=== PATIENT | male | born 1965 | race Caucasian/White ===

== ENCOUNTER 2022-07-03 08:25 | Outpatient (CLI) | payer OTHER, SELFPAY ==
[2022-07-03 12:24] LABS: Albumin* 4.6 g/dL (3.3-5.0)
[2022-07-03 12:25] LABS: Chloride* 103 mmol/L (96-114); Potassium* 4.8 mmol/L (3.6-5.1); Sodium* 137 mmol/L (135-149)
[2022-07-03 12:27] LABS: Alanine Aminotransferase* 49 U/L (4-50); Alkaline Phosphatase* 91 U/L (40-150); Aspartate Amino Transferase* 33 U/L (12-35); Bilirubin Total* 0.6 mg/dL (0.1-1.5); Blood Urea Nitrogen* 15 mg/dL (7-30); Carbon Dioxide* 27 mmol/L (20-32); Cholesterol* 148 mg/dL (90-199); Creatinine* 0.8 mg/dL (0.5-1.5); Estimated Glomerular Filt Rate 104 ml/min; Glucose* 148 mg/dL (60-115); Total Protein* 7.5 g/dL (6.0-8.3)
[2022-07-03 12:28] LABS: Calcium* 9.4 mg/dL (8.4-10.6); HDL Cholesterol* 48 mg/dL (>=40); LDL Cholesterol Calculated 87 mg/dL (<100); Triglycerides* 67 mg/dL (40-149)
[2022-07-03 12:31] LABS: Creatinine Urine 101.6 mg/dL
[2022-07-03 12:36] LABS: Microalbumin Creatinine Ratio 70 mg/g (0-30); Microalbumin Urine 8 mg/dL
== END 2022-07-03 08:26 | disposition home or self-care (01) ==
PROVIDERS: PCP Physician Assistant Medical; Visit Provider Physician Assistant Medical
DX: Z00.00 Encounter for general adult medical examination without abnormal findings (principal); E11.9 Type 2 diabetes mellitus without complications; Z12.5 Encounter for screening for malignant neoplasm of prostate; Z13.6 Encounter for screening for cardiovascular disorders
CPT/HCPCS: 80053; 80061; 82043; 82570; 84153

== ENCOUNTER 2024-01-14 09:02 | Outpatient (CLI) | payer OTHER, SELFPAY | END 2024-01-14 09:03 | disposition home or self-care (01) | PROVIDERS: PCP Physician Assistant Medical; Visit Provider Physician Assistant Medical | DX: E87.5 Hyperkalemia (principal); I10 Essential (primary) hypertension; E78.5 Hyperlipidemia, unspecified; E11.9 Type 2 diabetes mellitus without complications; G62.9 Polyneuropathy, unspecified; R80.9 Proteinuria, unspecified | CPT/HCPCS: 80053; 80061; 82043; 82570; 82607; 84443; 86703; 86803; 87086; G0103 ==

== ENCOUNTER 2024-01-23 07:38 | Outpatient (CLI) | payer OTHER, SELFPAY ==
--- NOTE | 2024-01-23 08:00 | CRLHL7_ITS ---
For Patients: As a result of the Century Cures Act, medical imaging exams and procedure reports are released immediately into your electronic medical record. You may view this report before your referring provider. If you have questions, please contact your health care provider. Indication: ABNORMAL FINDINGS SEEN ON CXR. RECENT PNEUMONIA Technique: Noncontrast CT chest Please note that all CT scans at this facility use dose modulation, iterative reconstruction, and/or weight-based dosing when appropriate to reduce radiation dose to as low as reasonably achievable. Comparison: Chest x-ray 01/12/2024 Findings: Mild emphysematous changes. No suspicious pulmonary nodule. Vascular calcifications. No adenopathy. Fatty liver. Adrenal glands normal. Degenerative changes. No fracture. No infiltrate, edema, effusion or pneumothorax. Impression: No suspicious pulmonary nodule. No infiltrate. Mild emphysema. Please note that all CT scans at this facility use dose modulation, iterative reconstruction, and/or weight-based dosing when appropriate to reduce radiation dose to as low as reasonably achievable. Dictated by Freddy Oneill MD @ 01/26/2024 10:26:55 AM (Electronically Signed)
== END 2024-01-23 07:39 | disposition home or self-care (01) ==
LOC: CT 07:39
PROVIDERS: PCP Physician Assistant Medical; Visit Provider Physician Assistant Medical
DX: R93.89 Abnormal findings on diagnostic imaging of other specified body structures (principal); R91.1 Solitary pulmonary nodule; F17.200 Nicotine dependence, unspecified, uncomplicated
CPT/HCPCS: 71250

== ENCOUNTER 2024-04-15 09:05 | Outpatient (CLI) | payer OTHER, SELFPAY | END 2024-04-15 09:06 | disposition home or self-care (01) | PROVIDERS: PCP Physician Assistant Medical; Visit Provider Physician Assistant Medical | DX: E11.9 Type 2 diabetes mellitus without complications (principal); I10 Essential (primary) hypertension; E78.5 Hyperlipidemia, unspecified; R80.9 Proteinuria, unspecified; E87.5 Hyperkalemia | CPT/HCPCS: 80053; 80061; 82043; 82570 ==

== ENCOUNTER 2024-10-11 08:58 | Outpatient (CLI) | payer OTHER, SELFPAY | END 2024-10-11 08:59 | disposition home or self-care (01) | LOC: NFLDREF 10-14 06:59 | PROVIDERS: PCP Physician Assistant Medical; Referring Provider Physician Assistant Medical; Visit Provider Physician Assistant Medical | DX: E11.9 Type 2 diabetes mellitus without complications (principal); I10 Essential (primary) hypertension | CPT/HCPCS: 80048 ==

== ENCOUNTER 2024-10-25 08:45 | Outpatient (CLI) | payer OTHER, SELFPAY ==
--- NOTE | 2024-10-25 10:32 | P.ANES_ITS ---
Anesthesia Charges Start Date/Time Anesthesia Start Date: 10/25/24 Anesthesia Start Time: 09:48 Stop Date/Time Anesthesia Stop Date: 10/25/24 Anesthesia Stop Time: 10:26 Coding CPT Codes CPT Codes: BRINA LWChelsey INTST NDSC NOS - [id number] ([id number]) P2 - PATIENT W/MILD SYST DISEASE, QX - MARINE DIVER SVC W/ MD MED DIRECTION, QK - RN BURN 2-4 CNCRNT ANES PROC
--- NOTE | 2024-10-25 10:32 | W.ANESCHARGE ---
Anesthesia Charges Start Date/Time Anesthesia Start Date: 10/25/24 Anesthesia Start Time: 09:48 Stop Date/Time Anesthesia Stop Date: 10/25/24 Anesthesia Stop Time: 10:26 Coding CPT Codes CPT Codes: BRINA LWChelsey INTST NDSC NOS - [id number] ([id number]) P2 - PATIENT W/MILD SYST DISEASE, QX - METAL FINISHER SVC W/ MD MED DIRECTION, QK - REAL ESTATE INVESTMENT ANALYST 2-4 CNCRNT ANES PROC
--- NOTE | 2024-10-25 11:17 | P.ANES_ITS ---
Anesthesia Charges Start Date/Time Anesthesia Start Date: 10/25/24 Anesthesia Start Time: 09:48 Stop Date/Time Anesthesia Stop Date: 10/25/24 Anesthesia Stop Time: 10:26 Coding CPT Codes CPT Codes: BRINA LWR INTST NDSC NOS - [id number] ([id number]) P2 - PATIENT W/MILD SYST DISEASE, QK - TOOL CHECKER 2-4 CNCRNT ANES PROC, QX - FOOD INSPECTOR SVC W/ MD MED DIRECTION
--- NOTE | 2024-10-25 11:17 | W.ANESCHARGE ---
Anesthesia Charges Start Date/Time Anesthesia Start Date: 10/25/24 Anesthesia Start Time: 09:48 Stop Date/Time Anesthesia Stop Date: 10/25/24 Anesthesia Stop Time: 10:26 Coding CPT Codes CPT Codes: BRINA LWR INTST NDSC NOS - [id number] ([id number]) P2 - PATIENT W/MILD SYST DISEASE, QK - MANAGER OF PRODUCT 2-4 CNCRNT ANES PROC, QX - MECHANICAL SYSTEMS CONTROL ENGINEER SVC W/ MD MED DIRECTION
== END 2024-10-25 08:46 | disposition home or self-care (01) ==
LOC: OP CLINIC 08:46
PROVIDERS: PCP Physician Assistant Medical; Visit Provider Surgery
DX: Z12.11 Encounter for screening for malignant neoplasm of colon (principal); D12.3 Benign neoplasm of transverse colon; Z86.0100 Personal history of colon polyps, unspecified
CPT/HCPCS: 00811; 45385; 88305; J2704

== ENCOUNTER 2025-02-10 09:49 | Outpatient (CLI) | payer OTHER, SELFPAY | END 2025-02-10 09:50 | disposition home or self-care (01) | LOC: LKVREF 09:50 | PROVIDERS: PCP Physician Assistant Medical; Visit Provider Physician Assistant Medical | DX: Z12.5 Encounter for screening for malignant neoplasm of prostate (principal) | CPT/HCPCS: G0103 ==